=== PATIENT | male | born 1935 | race Caucasian/White ===

== ENCOUNTER 2017-12-06 08:24 | Outpatient (CLI) | payer MEDICARE | END 2017-12-06 08:25 | disposition home or self-care (01) | LOC: BICMRI 08:24 | PROVIDERS: ATTEND General Practice | DX: M79.604 Pain in right leg (principal); M79.605 Pain in left leg; M47.896 Other spondylosis, lumbar region; M48.061 Spinal stenosis, lumbar region without neurogenic claudication | CPT/HCPCS: 72148 ==

== ENCOUNTER 2018-02-21 09:05 | Outpatient (CLI) | payer MEDICARE ==
[2018-02-21 10:13] LABS: Hemoglobin 14.2 g/dL (14.0-18.0); Mean Corpuscular HGB CONC 34.1 g/dL (32.0-36.0); Mean Corpuscular Hemoglobin 29.6 pg (27.0-31.0); Mean Corpuscular Volume 86.8 fL (78.0-98.0); Mean Platelet Volume 7.8 fL (7.4-10.4); Platelet Count 145 thou/uL (130-400); RBC Distribution Width 11.8 % (11.5-14.5)
[2018-02-21 10:18] LABS: PTT 26.5 SEC (22.9-36.1); Prothrombin Time 13.1 SEC (12.0-14.7)
== END 2018-02-21 09:06 | disposition home or self-care (01) ==
LOC: LABBT 09:05
PROVIDERS: ATTEND Neurological Surgery
DX: Z01.812 Encounter for preprocedural laboratory examination (principal); M48.061 Spinal stenosis, lumbar region without neurogenic claudication
CPT/HCPCS: 85027; 85610; 85730

== ENCOUNTER 2018-02-24 05:34 | Day surgery (SDC) | payer MEDICARE ==
[2018-02-21 09:29] VITALS: BMI 27.4
--- NOTE | 2018-02-23 11:37 | HP ---
CHIEF COMPLAINT: Lower back pain and radicular pain. HISTORY OF PRESENT ILLNESS: Mr. Santamaria is referred by Dr. Cornelius for back and leg pains. He had spine and hip injections in the past, with the spine injections lasting twice as long as those in the hip/g reater trochanter bursa. The pain is now affecting not just the right leg as it had 5 years ago, but also the left. Lying flat in the bed and standing for too long made the pain worse, and eventually he had to lean forward or sit and move out of these positions. 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 There is no significant change in bowel or bladder control. His TURP resulted in so me urinary incontinence lasting the last 8 years. Mr. Santamaria has some pain over the greater trochante r bursa as well as some in the right groin, but an orthopedic surgeon felt his hip was fine. The cur rent leg pain is in the gluteal muscles and posterior thighs, sometimes past the knees with long enou gh standing. REVIEW OF SYSTEMS: A 10-point review of systems has been completed and is otherwise negative than st ated above in the HPI. PAST MEDICAL HISTORY: Thyroid disease, high cholesterol, esophageal reflux, aneurysm -brain, carpal tunnel, prostate cancer, macular degeneration. PAST SURGICAL HISTORY: Prostate cancer, carpal tunnel release on the right. HOSPITALIZATIONS: Hospitalizations for cancer in 2012. FAMILY HISTORY: Father is . Mother is . SOCIAL HISTORY: The patient is a former smoker, does not drink alcohol or use any other illicit drug s. Patient is a retired law enforcement worker. MEDICATIONS: Levothyroxine sodium, omeprazole, Ciloxan atorvastatin, calcium. ALLERGIES: No known drug allergies. PHYSICAL EXAMINATION: GENERAL: The patient is awake, alert, no signs of visible distress. ENT: Hearing is intact, moist mucous membranes. HEAD: Normocephalic, atraumatic. EYES: Pupils are equal, round, and reactive to light. Extraocular movements are intact. PULMONARY: Normal work of breathing on room air. CARDIOVASCULAR: No cyanosis or clubbing. Regular rate and rhythm. Normal S1, S2. NEUROLOGIC: Cranial nerves are intact except for central vision loss. Cerebellar exam: There is no truncal ataxia. Gait and station are normal. Motor exam: There is normal strength in the iliopsoa s, quadriceps, hamstrings, anterior, EHL, gastrocs, and toe flexors. Sensory exam, mild right S1 sen hector loss compared to left. Lower extremity exam; orthopedic hip flexion and internal rotation do no t cause groin pain. Negative straight leg raise. Reflex exam hypoactive, asymmetric, no Babinski's, no clonus. IMAGING: MRI very severe stenosis at L3-4, L4-5, L5-S1. ASSESSMENT: Spondylosis without myelopathy or radiculopathy. PLAN: Dr. Perez had offered a laminectomy L3 through S1. Informed consent; we have discussed in dications, risks, benefits, alternatives, and expected results from surgery. The risks discussed inc luded, but are not limited to bleeding, infection, CSF leak, nerve damage, weakness, incontinence, ca uda equina injury, arachnoiditis, paralysis, ventilator dependence, wheelchair dependence, loss of vi na, cardiopulmonary complications of anesthesia or . Long-term complications discussed includ ed, but not limited to spinal instability and the need for future surgery. He understands the risks and wanted to proceed with surgery.
[2018-02-24] MEDS ORDERED: CEFAZOLIN/Water 2 GM/20 ML SYRINGE ONE ×2 (05:55→13:15)
[2018-02-24] MEDS ORDERED: Bupivacaine HCl 0.5%/Epinephrine 1:200,000/PF 30 ml Vial ONE (06:32)
[2018-02-24] MEDS ORDERED: Sodium Chloride 0.9% 10 ML ONE (06:32)
[2018-02-24] MEDS ORDERED: Thrombin 5000 UNITS/5 ML VIAL ONE (06:32)
[2018-02-24] MEDS ORDERED: Gelfilm 1 EA Packet ONE (06:32)
[2018-02-24] MEDS ORDERED: Fentanyl 100 MCG/2 ML VIAL ONE (06:46)
[2018-02-24] MEDS ORDERED: ePHEDrine/0.9% NaCl/PF SYRINGE 50 mg/10 ml ONE (09:22)
--- NOTE | 2018-02-24 10:26 | OP ---
DATE OF PROCEDURE: 02/24/2018 SURGEON: Alphonse Perez M.D. NUCLEAR OPERATIONS SPECIALIST: Ena Jones PA-C. PREOPERATIVE INDICATION: Treat pain, prevent neurological deterioration. PREOPERATIVE DIAGNOSIS: Multilevel lumbar stenosis with neurogenic claudication. POSTOPERATIVE DIAGNOSIS: Multilevel lumbar stenosis with neurogenic claudication. OPERATIVE PROCEDURE: Decompressive laminectomy, medial facetectomy, foraminotomy L3-L4, L4-L5, L5-S1 , operating microscope. PREOPERATIVE MEDICATION: Ancef 2 grams IV. DRAIN NUMBER: Zero. DRAIN TYPE: None. OPERATIVE DICTATION: The patient was brought to the operating room. General endotracheal anesthesia was induced. The patient was positioned prone on the operating table with his chest and hips suppor robert by gel-filled chest rolls. A lateral fluoro radiograph was used to plan our incision. The lumba r skin was sterilely prepped and draped. We opened with a 10 blade knife and controlled bleeding wit h bipolar and monopolar cautery. We used monopolar cautery to dissect through subcutaneous tissues t o thoracodorsal fascia. We incised the fascia in the midline and reflected the paraspinal muscles of f the spinous process and lamina of L3, L4, L5, and S1. A self-retaining retractor was placed and a lateral fluoro radiograph confirmed the levels upon which we were operating. We then used an Adson r ongeur to remove the spinous processes from L3 to the top of the sacrum. Using Kerrison rongeur, we fashioned a laminectomy down the midline. The lateral recesses were quite compressed and felt safer on the operating microscope. Under microscopic magnification and using microsurgical techniques, we performed medial facetectomies and foraminotomies decompressing the lateral recess at L3-L4, L4-L5 and L5-S1 as well as the exiting nerve in their foramina. The L3 nerve, L4 nerve, L5 nerve and S1 nerve were well decompressed until a Valencia ball could pass through the lateral recess and out the foramen without impingement. We the n irrigated copiously with bacitracin irrigation. We waxed all the bone edges. We took the operatin g microscope out of the field. We infused local anesthetic in the paraspinal muscles and we closed t he wound in anatomic layers. We applied a sterile dressing. This was a clean case and no contaminat ion.
[2018-02-24] MEDS ORDERED: Tamsulosin HCl 0.4 MG CAP ONE (10:41)
[2018-02-24] MEDS ORDERED: Morphine 4 MG/ML VIAL ONE (11:29)
[2018-02-24] MEDS ORDERED: HYDROcodone/Acetaminophen 5/325 mg Tablet ONE ×2 (13:08→13:45)
== END 2018-02-24 14:15 | disposition home or self-care (01) ==
LOC: SDC 05:34
PROVIDERS: ATTEND Neurological Surgery
PROC: 0SB20ZZ Excision of Lumbar Vertebral Disc, Open Approach (ICD-10-PCS; principal; 2018-02-24)
PROC: 01NB0ZZ Release Lumbar Nerve, Open Approach (ICD-10-PCS; 2018-02-24)
DX: M48.062 Spinal stenosis, lumbar region with neurogenic claudication (principal); M47.26 Other spondylosis with radiculopathy, lumbar region; E78.00 Pure hypercholesterolemia, unspecified; Z87.891 Personal history of nicotine dependence; Z79.899 Other long term (current) drug therapy
CPT/HCPCS: 76001; A4216; J0670; J2270; J3010; J3370; J3490

== ENCOUNTER 2020-01-08 09:01 | Observation (INO) | payer MEDICARE ==
[2020-01-08 09:27] LABS: #Basophils 0.1 thou/uL (0.0-0.2); #Eosinphils 0.4 thou/uL (0.0-0.7); #Lymphocytes 1.5 thou/uL (1.20-3.40); #Monocytes 0.7 thou/uL (0.11-0.59); #Neutrophils 4.4 thou/uL (1.40-6.50); %Basophils 1.1 % (0.0-1.0); %Eosinophils 5.2 % (0.0-10.0); %Lymphocytes 21.1 % (21.0-51.0); %Monocytes 9.2 % (0.0-10.0); %Neutrophils 63.4 % (42.0-75.0); Hemoglobin 13.3 g/dL (14.0-18.0); Mean Corpuscular HGB CONC 32.8 g/dL (32.0-36.0); Mean Corpuscular Hemoglobin 29.1 pg (27.0-31.0); Mean Corpuscular Volume 88.5 fL (78.0-98.0); Mean Platelet Volume 8.7 fL (7.4-10.4); Platelet Count 156 thou/uL (130-400); RBC Distribution Width 11.7 % (11.5-14.5); Red Blood Cell (RBC) Count 4.57 mill/uL (4.70-6.10)
[2020-01-08 09:52] LABS: CK (CPK) 76 U/L (30-200); Lipase 36 U/L (8-78)
[2020-01-08 09:57] LABS: CKMB 0.9 ng/mL (0-6.6)
--- NOTE | 2020-01-08 10:21 | RAD ---
CHEST 1 VIEW: Date: 01/08/2020 INDICATION: Chest tightness with physical activity. COMPARISON: None. FINDINGS: Lungs are clear. Heart size is normal. No acute osseous abnormality is evident. IMPRESSION: No acute cardiopulmonary abnormality. POS: BH
[2020-01-08] MEDS ORDERED: Aspirin Chewable 81 MG TAB ONE (10:31)
[2020-01-08 11:47] LABS: ALT (SGPT) 13 U/L (8-55); AST (SGOT) 17 U/L (5-34); Albumin 3.7 g/dL (3.4-4.8); Alkaline Phosphatase 107 U/L (40-110); Anion Gap 15 mmol/L (10-20); BUN (Urea Nitrogen) 17 mg/dL (8.4-25.7); Bilirubin, Total 0.6 mg/dL (0.2-1.2); Calc. Creatinine Clearance 0 mL/min (70-130); Calcium 9.1 mg/dL (7.8-10.44); Carbon Dioxide 22 mmol/L (23-31); Chloride 108 mmol/L (98-107); Estimated GFR-MDRD 40; Globulin 4.1 g/dL (2.4-3.5); Glucose 114 mg/dL (83-110); Potassium 3.8 mmol/L (3.5-5.1); Protein, Total 7.8 g/dL (5.8-8.1); Sodium 141 mmol/L (136-145)
[2020-01-08] MEDS ORDERED: Acetaminophen 325 MG TAB PO PRN (12:30)
[2020-01-08] MEDS ORDERED: Senokot S 8.6-50 MG TAB PO PRN (12:30)
[2020-01-08 12:57] LABS: Troponin I 0.045 ng/mL (< 0.028)
[2020-01-08 13:26] LABS: CKMB 0.9 ng/mL (0-6.6)
[2020-01-08 14:27] VITALS: BMI 27.1
[2020-01-08] MEDS ORDERED: hydrALAZINE 20 MG/ML VIAL SLOW IVP PRN (15:19)
[2020-01-08] MEDS ORDERED: Nitroglycerin 0.4 MG TAB (25 Tab Bottle) SL PRN (15:19)
[2020-01-08 15:22] LABS: Hemoglobin A1c 5.9 % (4.0-6.0)
[2020-01-08 15:38] LABS: Cardiac Risk 4.5 (Less than 4.5)
[2020-01-08 15:40] LABS: Troponin I 0.037 ng/mL (< 0.028)
--- NOTE | 2020-01-08 16:07 | HP ---
CHIEF COMPLAINT: Chest pain. HISTORY OF PRESENT ILLNESS: An 84-year-old male without significant past medical history, had ongoing intermittent chest pain of 2-week duration and mostly exertional. Tightness around the center of the chest, and sometimes as if somebody is pushing in the middle and going back towards the back. Associated with shortness of breath. It woke him up last night that made him nervous, so he came to the ER. The patient does not have any history of lower extremity edema. No orthopnea or PND. However, he does get up in the night frequently for voiding with a history of BPH. He had a stress test roughly 30 years ago. No recent history of cardiac issues. No history of TIA. The patient is not diabetic. Does not take any blood pressure medications. His troponin was 0.034. EKG, normal sinus at 83 beats per minute. REVIEW OF SYSTEMS: A 13-point review of systems reviewed with the patient. Pertinent addressed in the history of present illness and the rest are negative including no nausea, vomiting, abdominal pain, constipation, diarrhea, hematuria , dysuria, or hematochezia. Denies headache, tingling, or numbness in his extremities. PAST MEDICAL HISTORY: Hypertension, hyperlipidemia, BPH, hypothyroidism. SOCIAL HISTORY: Does not smoke. FAMILY HISTORY: Both parents' health history asked and is negative. ALLERGIES: HE HAS NO KNOWN DRUG ALLERGIES. MEDICATIONS: 1. Omeprazole 20 mg daily. 2. Losartan one tablet, unknown dose daily. 3. Levothyroxine 25 mcg daily in the morning. 4. Lipitor unknown dose at bedtime. PHYSICAL EXAMINATION: VITAL SIGNS: Pulse 72, oxygen saturations 99% on room air. His blood pressure is 168/84. GENERAL: The patient is alert and oriented x4, well developed, well nourished, healthy, young looking male for his 84 years. HEENT: Pupils are equal, round, and reactive to light. Anicteric. Mucous membranes moist. CARDIOVASCULAR: Regular rate and rhythm without murmurs, rubs, or gallops. LUNGS: Clear to auscultation bilaterally without wheezing, rales, or rhonchi. ABDOMEN: soft, Bowel sounds present. Quite protuberant, it is slightly on the obese side. EXTREMITIES: Without pitting edema. PSYCHIATRIC: Appropriate mood and affect. LABORATORY STUDIES: EKG, normal sinus rhythm. Troponin 0.034. Hemoglobin 13.3 , and platelet is 156,000. Creatinine 1.64, bicarb 22. His troponin is 0.05 and 0.034. TSH is 1.7. Lipase 36. BNP 24. Chest x-ray without acute abnormality. IMPRESSION AND PLAN: An 84-year-old male with history of hypertension, hyperlipidemia, BPH, presenting with ongoing intermittent exertional chest pain. The patient does have risk factors of hypertension and hyperlipidemia. We will get serial troponins to rule out acute coronary syndrome. We will get a nuclear stress test in the morning. The patient also states that he gets short of breath with mild exertion. We will get a 2D echo to assess his EF, chambers and any valve issues. We will get A1c, TSH, as well as lipid panel and adjust the Lipitor dose based on his LDL level if needed. We will consult Cardiology if stress test is abnormal. Acute kidney injury, it looks like his creatinine seems to be stable since February 2019 when he has a creatinine of 1.66 and today it is 1.64. Likely he has chronic kidney disease, stage 3. Job ID: [id number] [facility]ITAL[facility]ex[facility]
[2020-01-09 04:34] LABS: Band 2 % (5-11); Hemoglobin 12.7 g/dL (14.0-18.0); Hypochromia SLIGHT = 6-15 cells (100X) (0-5/hpf); Lymphocytes 19 % (21-51); MDiff Complete? YES; Mean Corpuscular HGB CONC 35.2 g/dL (32.0-36.0); Mean Corpuscular Hemoglobin 31.1 pg (27.0-31.0); Mean Corpuscular Volume 88.3 fL (78.0-98.0); Mean Platelet Volume 8.8 fL (7.4-10.4); Monocytes 2 % (0-10); Neutrophil 77 % (42-75); Platelet Count 136 thou/uL (130-400); Platelet Morphology Comment Appears Adequate; RBC Distribution Width 11.6 % (11.5-14.5); Red Blood Cell (RBC) Count 4.07 mill/uL (4.70-6.10); White Blood Cell (WBC) Count 7.1 thou/uL (4.8-10.8)
[2020-01-09 04:44] LABS: ALT (SGPT) 10 U/L (8-55); AST (SGOT) 15 U/L (5-34); Albumin 3.4 g/dL (3.4-4.8); Alkaline Phosphatase 97 U/L (40-110); Anion Gap 12 mmol/L (10-20); BUN (Urea Nitrogen) 23 mg/dL (8.4-25.7); Bilirubin, Total 0.6 mg/dL (0.2-1.2); Calc. Creatinine Clearance 33 mL/min (70-130); Calcium 8.6 mg/dL (7.8-10.44); Carbon Dioxide 24 mmol/L (23-31); Chloride 107 mmol/L (98-107); Estimated GFR-MDRD 38; Globulin 3.6 g/dL (2.4-3.5); Glucose 100 mg/dL (83-110); Sodium 139 mmol/L (136-145)
[2020-01-09] MEDS ORDERED: Levothyroxine Sodium 25 MCG TAB PO SCH (06:00)
[2020-01-09] MEDS ORDERED: ADENOSINE 60 MG/20 ML VIAL ONE (08:45)
[2020-01-09] MEDS ORDERED: Aspirin 81 mg Enteric Coated Tablet PO SCH (09:00)
--- NOTE | 2020-01-09 12:18 | NM ---
Radionucleotide stress and rest myocardial perfusion scan with CT attenuation correction and SPECT im aging Left ventricular wall motion evaluation and ejection fraction HISTORY: Chest pain. FINDINGS: Adenosine protocol. There is homogeneous uptake of radiotracer throughout the left ventricu lar myocardium. Mildly decreased uptake at the inferior wall is favored to represent diaphragmatic attenuation. No focal perfusion defect or reversibility evident. QGS analysis of gated SPECT images shows no focal wall motion abnormalities. Ejection fraction calcul ated at 66%. IMPRESSION : No scintigraphic evidence of ischemia. Normal LVEF.
[2020-01-09 15:38] VITALS: BP 125/59; TEMP 97.8
--- NOTE | 2020-01-09 17:35 | DIS ---
DATE OF ADMISSION: 01/08/2020 DATE OF DISCHARGE: 01/09/2020 DISCHARGE DIAGNOSES: 1. Noncardiac chest pain. 2. Hypertension. 3. Benign prostatic hypertrophy. 4. Chronic kidney injury stage 3. 5. Hyperlipidemia with LDL of 112. DISCHARGE MEDICATIONS: 1. Omeprazole 20 mg daily. 2. Losartan, continue with the home dose. 3. Aspirin 81 mg daily. 4. Lipitor increased from 10 mg home regimen to 40 mg, given the LDL of 112. 5. Levothyroxine 25 mcg daily. DIAGNOSTIC STUDIES: His echo shows EF of 55%. Normal left atrium and left ventricle impaired relaxation with diastolic dysfunction. Mild aortic and mitral regurgitation. A nuclear medicine stress test is negative for reversible ischemia, and normal EF. PHYSICAL EXAMINATION: VITAL SIGNS: Temperature 98.3, pulse 79, blood pressure 125/59, saturating 97% on room air. GENERAL: The patient is alert, oriented. He just finished his stress test and is quite anxious to go home. CARDIOVASCULAR: Regular rate and rhythm without murmurs, rubs or gallops. LUNGS: Clear to auscultation bilaterally without wheezing, rales, or rhonchi. ABDOMEN: Soft, nontender, nondistended. Good bowel sounds. LABORATORY DATA: Cardiac risk factors; his TSH is 1.77, his A1c 5.9, his triglyceride 97, cholesterol 170, LDL 113. HOSPITAL COURSE: This is a 84-year-old male with a history of cardiac risk factors of hypertension, hyperlipidemia, had 2-week duration of exertional angina. He ruled out for acute coronary syndrome with troponin 0.045, 0.03, and 0.022. EKG, no ischemic ST-T wave changes. He undergone nuclear medicine stress test, which is negative for reversible ischemia. His echo also showed normal EF. The patient is stable to be discharged to home today. Given his LDL level of 112, I have increased his Lipitor dose. He needs to follow up with his primary care physician within a couple of weeks. DISCHARGE INSTRUCTIONS: Activity as tolerated. Healthy heart diet. Follow up with the primary care physician in 2 weeks. TIME SPENT: Discharge time took over 30 minutes. Job ID: [id number] MTDD
--- NOTE | 2020-01-12 12:55 | EKG ---
Test Reason : Blood Pressure : / mmHG Vent. Rate : 083 BPM Atrial Rate : 083 BPM P-R Int : 172 ms QRS Dur : 092 ms QT Int : 376 ms P-R-T Axes : 032 -27 -27 degrees QTc Int : 441 ms Normal sinus rhythm Incomplete right bundle branch block Minimal voltage criteria for LVH, may be normal variant Borderline ECG Confirmed by WILLIAM SORIANO ([id number]), rewrite editor JACLYN GARRIDO ([id number]) on 01/12/2020 12:55:20 PM Referred By: Confirmed By:WILLIAM Renteria
== END 2020-01-09 17:02 | disposition home or self-care (01) ==
LOC: ERS 09:01 → 2NO 14:14
PROVIDERS: ADMIT Internal Medicine; ATTEND Internal Medicine
DX: R07.89 Other chest pain (principal); N40.0 Benign prostatic hyperplasia without lower urinary tract symptoms; I12.9 Hypertensive chronic kidney disease with stage 1 through stage 4 chronic kidney disease, or unspecified chronic kidney disease; N18.3 Chronic kidney disease, stage 3 (moderate); E78.5 Hyperlipidemia, unspecified; E03.9 Hypothyroidism, unspecified; Z79.82 Long term (current) use of aspirin; Z79.899 Other long term (current) drug therapy
CPT/HCPCS: 71045; 78452; 80053; 80061; 82550; 82553 ×2; 83036; 83690; 83880; 84484 ×2; 85007; 85027; 93005; 93017; 93306; 99285; A9500; G0378 ×3; 36415; 84443; 85025; J0153